=== PATIENT | female | born 1965 | race Caucasian/White ===

== ENCOUNTER 2023-03-21 13:38 | Emergency (ER) | payer OTHER ==
[2023-03-21 13:52] VITALS: O2SAT 98
[2023-03-21] MEDS ORDERED: Hydromorphone 1 mg/ml Injection IM ONE (13:53)
[2023-03-21] MEDS ORDERED: Hydromorphone 1 mg/ml Injection ONE (13:54)
[2023-03-21] MEDS ORDERED: ZOFRAN ODT 4 MG ONE (13:54)
[2023-03-21] MEDS ORDERED: ZOFRAN ODT 4 MG PO ONE (13:54)
--- NOTE | 2023-03-21 14:17 | XRAY ---
Indication: Pain following injury. 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 No other bony, articular, or soft tissue abnormalities.
[2023-03-21] MEDS ORDERED: XYLOCAINE 1% HCL 20 ML MDV ONE (14:27)
--- NOTE | 2023-03-21 14:35 | ERPHSYRPT ---
- History of Present Illness Time Seen by Provider: 03/21/23 13:50 Source: patient Exam Limitations: no limitations Patient Subjective Stated Complaint: PT states "I was walking a dog and using a retractable leash and he saw a rabbit and took off and now my finger is locked and hurts." Triage Nursing Assessment: Pt presented alert and oriented X 3, skin pwd. PT ambulates with an upright steady gait, able to speak in clear full sentences. PT fourth digit first knuckle deformity, cap refill <3 Physician History: Patient is a 57-year-old white female who was walking a dog with a lease in the lease was wrapped around her fingers and the dog took off and dislocated or fractured her right ring finger. This occurred just shortly before arrival. Occurred: just prior to arrival Method of Injury: twisted Quality: throbbing Severity of Pain-Max: moderate Severity of Pain-Current: moderate Extremities Pain Location: 4th finger: right (External appearance of what should be a dislocation of the PIP joint of the right ring finger) Modifying Factors: Improves With: movement Associated Symptoms: none Allergies/Adverse Reactions: tetracycline Allergy (Severe, Verified 03/21/23 13:52) Swelling Home Medications: No Reportable Medications [No Reported Medications] 03/21/23 [History] Hx Tetanus, Diphtheria Vaccination/Date Given: No Hx Influenza Vaccination/Date Given: No Hx Pneumococcal Vaccination/Date Given: No Immunizations Up to Date: No Travel Risk - International Travel Have you traveled outside of the country in past 3 weeks: No - Coronavirus Screening Are you exhibiting any of the following symptoms?: No Close contact with a COVID-19 positive Pt in past 14-21 Days: No - Vaccine Status Have you recieved a Covid-19 vaccination: No - Past Medical History Pertinent Past Medical History: No - Past Surgical History Past Surgical History: No - Social History Smoking Status: Current every day smoker How long have you smoked: years Exposure to second hand smoke: Yes Drug Use: none Patient Lives Alone: No - Nursing Vital Signs Nursing Vital Signs: Initial Vital Signs Temperature 98.9 F 03/21/23 13:47 Pulse Rate 90 03/21/23 13:47 Respiratory Rate 20 03/21/23 13:47 Blood Pressure 126/80 03/21/23 13:47 O2 Sat by Pulse Oximetry 98 03/21/23 13:47 Pain Scale Pain Intensity 0 - Physical Exam General Appearance: mild distress, alert, anxiety Eyes, Ears, Nose, Throat Exam: moist mucous membranes Neck Exam: supple, full range of motion Back Exam: normal inspection, normal range of motion Shoulder Exam: normal inspection, non-tender, no evidence of injury Elbow/Forearm Exam: normal inspection, non-tender, no evidence of injury Wrist Exam: normal inspection, non-tender, no evidence of injury Hand Exam: deformity (Deformity of the right ring finger with an apparent dislocation at the PIP joint) Neuro/Tendon Exam: normal sensation, normal motor functions, normal tendon functions Mental Status Exam: alert, oriented x 3, cooperative Skin Exam: normal color, warm, dry, rash SpO2 Interpretation: normal SpO2: 98 O2 Delivery: Room Air Procedures - Splinting Time of Procedure: 14:51 Location of Splint: Right (Ring finger) Type of Splint: Foam Pad Finger Splint (Splint was natanael taped to the adjacent finger.) Splint Applied By: ED Nurse Pre-Proc Neuro Vasc Exam: normal Post-Proc Neuro Vasc Exam: neurovascular intact, unchanged from pre-exam - Joint Reduction Time of Procedure: 14:37 Joint Reduction Site: Right, 4th digit, PIP Conscious Sedation: No Reduction Attempts: 1 Pre-Procedure Neurovascular Exam: neurovascular intact, well perfused, no neuro deficit Post Procedure Neurovascular Exam: neurovascular intact Post Joint Reduction Film: no fracture seen - Course Nursing assessment & vital signs reviewed: Yes - Radiology Exams Right Hand X-ray Interpretation: Interpreted by me (Pre and postreduction films interpreted by me. No fracture and successful reduction is noted) Ordered Tests: Active Orders 24 hr Category Date Time Status HAND (MINIMUM 3 VIEWS) Stat Exams 03/21/23 13:54 Completed HAND (MINIMUM 3 VIEWS) Stat Exams 03/21/23 14:39 Ordered Medication Summary Discontinued Medications Generic Name Dose Route Start Last Admin Trade Name Freq PRN Reason Stop Dose Admin Hydromorphone HCl 1 mg 03/21/23 13:53 03/21/23 13:57 Hydromorphone 1 Mg/1ml Inj IM 03/21/23 13:54 1 mg STAT ONE Administration Hydromorphone HCl Confirm 03/21/23 13:54 Hydromorphone 1 Mg/1ml Inj Administered 03/21/23 13:55 Dose 1 mg .ROUTE .STK-MED ONE Lidocaine HCl Confirm 03/21/23 14:27 Lidocaine Hcl 1% 20 Ml Mdv 20 Ml Ml Administered 03/21/23 14:28 Dose 1 ml .ROUTE .STK-MED ONE Ondansetron HCl 4 mg 03/21/23 13:54 03/21/23 13:57 Zofran 4 Mg/Udtablet Orally Disintegrating PO 03/21/23 13:55 4 mg STAT ONE Administration Ondansetron HCl Confirm 03/21/23 13:54 Zofran 4 Mg/Udtablet Orally Disintegrating Administered 03/21/23 13:55 Dose 4 mg .ROUTE .STK-MED ONE - Progress Progress: improved Medical Desision Making - Diagnostic Testing Diagnostic test were ordered, analyzed, and reviewed by me: Yes Radiological Interpretation: Interpreted by me - Risk of complications Minimal Risk: Minimal risk of morbidity - Departure Departure Disposition: Home Clinical Impression: Dislocation of proximal interphalangeal joint of right ring finger Condition: Stable Critical Care Time: No Instructions: Finger Dislocation (DC)
[2023-03-21 14:46] VITALS: TEMP 97.2
--- NOTE | 2023-03-21 15:09 | XRAY ---
Indication: Post reduction. Comparison: Taken earlier in the day. 3 view right hand now demonstrates anatomic straightened 4th PIP joint. 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
[2023-03-21 15:21] VITALS: BP 129/94; PULSE 80; RESP 18
== END 2023-03-21 15:21 | disposition home or self-care (01) ==
LOC: ED 13:38
DX: S63.284A Dislocation of proximal interphalangeal joint of right ring finger, initial encounter (principal); X50.0XXA Overexertion from strenuous movement or load, initial encounter; Y93.K1 Activity, walking an animal; Z28.310 Unvaccinated for COVID-19; Z72.0 Tobacco use
CPT/HCPCS: 26770; 73130; 96372; 99283; J1170; Q0162